=== PATIENT | male | born 1990 | race Caucasian/White ===

== ENCOUNTER → 2017-06-15 | Outpatient (CLI) | payer OTHER ==
[~2017-06-15] MED LIST: AMOXICILLIN PO; BENTYL10 MG PO; COLACE PO; IBUPROFEN600 MG PO; NO MEDICATIONS; OMEPRAZOLE40 MG PO; PANTOPRAZOLE SO40 MG PO; PHENERGAN W/CO120 ML PO; PHENERGAN25 MG PO; ULTRAM PO
--- NOTE | ~2017-06-15 | US85 ---
[facility] A Service of [facility] RADIOLOGY TEXT RESULTS PATIENT: ANDIE REDDY LOCATION: CNIV : 89 UNIT #: [id number] AGE: [address]: Alex Lazcano MD SEX: M ORDER DR: [id number] [facility] [address] [place], [place] [address] [id number] O MR#: [id number] Acc #: [id number] NAME: ANDIE REDDY : 1990 SEX: M STUDY DATE/TIME: 06/15/2017 17:02 UNIT: CNIV ROOM: STUDY DESCRIPTION: [facility] or [facility] Attending Physician: Alex Lazcano M.D. Referring Physician: Alex Lazcano M.D. Ordering Physician: Alex Lazcano M.D. Primary Care Physician: Alex Lazcano M.D. MEDICAL IMAGING REPORT This report is preliminary unless electronic signature is present EXAM Right lower extremity venous ultrasound HISTORY Injury to right leg 1 week ago, swelling right calf since yesterday. TECHNIQUE Venous ultrasound examination of the right lower extremity was performed using grayscale, spectral Doppler and color flow Doppler imaging. FINDINGS The examination is negative. There is no evidence of right lower extremity deep venous thrombus from the groin to the lower calf. Visualized greater saphenous vein is also patent. IMPRESSION Negative examination. No evidence of right lower extremity deep venous thrombosis. Dictated by... Alex Bee M.D. THIS IS AN ELECTRONICALLY VERIFIED REPORT Alex Bee M.D. at 06/16/2017 5:13 PM Gen TD: 06/15/2017 21:25 JOB #: [id number] MEDICAL IMAGING REPORT Page 1 of 1 COPY
== END | disposition home or self-care (01) ==
LOC: CNIV 16:30
DX: M79.604 Pain in right leg (principal); M79.89 Other specified soft tissue disorders
CPT/HCPCS: 93971